=== PATIENT | female | born 1980 | race African-American/Black ===

== ENCOUNTER 2019-11-16 14:25 | Emergency (ER) | payer OTHER, SELFPAY ==
[2019-11-16 14:37] VITALS: BP 150/96; PULSE 97; RESP 20; TEMP 37; O2SAT 98
--- NOTE | 2019-11-16 14:42 | ED.GENADULT ---
HPI - General Adult General Chief complaint: Skin/Abscess/Foreign Body Stated complaint: spider bite Time Seen by Provider: 11/16/19 14:42 Source: patient and RN notes reviewed Mode of arrival: ambulatory Limitations: no limitations History of Present Illness HPI narrative: 39-year-old -[place] female presents with complaints of spider bite with redness, warmth, tenderness, and swelling to RT upper back for 1 day. One day ago with nodule and then redness and warmth continues to increase throughout the past 12-16 hours with tenderness after her picked at area. Cleaned area and applied Vaseline without relief. Denies radiation of tenderness. Increase redness and swelling. Exacerbating factor consist of picking at area. Denies shoulder or neck pain. 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 Denies fever or chills. Denies nausea, vomiting, and abdominal pain. LMP, 10/20/19. The patient reports she have not been diagnosed with COVID-19. The patient reports she is not waiting for the results of a COVID-19 lab test. The patient reports she do not have fever, chills, weakness, fatigue, or myalgia. The patient reports she do not have a new or worsening cough or shortness of breath. Denies chest pain. The patient reports she do not have any rhinorrhea, congestion, sore throat, and diarrhea. Tolerating po intake well. Denies recent traveling. Denies concerns for COVID-19 or exposures been home with limited outdoor exposure except for essential household needs, work, and return home. At this time, patient is not suspected of having COVID-19. Some parts of this dictation were generated by voice recognition software and may contain typographical and/or grammatical inaccuracies. Related Data Home Medications Medication Instructions Recorded Confirmed alprazolam 11/16/19 Allergies Allergy/AdvReac Type Severity Reaction Status Date / Time No Known Allergies Allergy Verified 10/17/16 15:01 Review of Systems Review of Systems: Narrative: CONSTITUTIONAL: Denies fever, chills, sweats. EYES: Denies visual changes, redness, discharge. ENT: Denies rhinorrhea, congestion, sore throat, otalgia. CARDIOVASCULAR: Denies chest pain, palpitations, edema. RESPIRATORY: Denies dyspnea, wheezing, cough. GASTROINTESTINAL: Denies abdominal pain, nausea, vomiting, diarrhea. GENITOURINARY: Denies dysuria, hematuria, abnormal discharge. SKIN: Complains of drainage,redness, swelling, warmth, and tenderness to RT upper back. MUSCULOSKELETAL: Denies acute back pain, joint pain, or myalgia. NEUROLOGIC: Denies numbness or focal weakness. PSYCHIATRIC: Denies anxiety or depression. All systems reviewed & are unremarkable except as noted in HPI and below. [facility] Past Medical History Medical History (Updated 11/17/19 @ 00:00 by Madeline Dadick) No significant past medical history Surgical History Surgical History (Updated 11/16/19 @ 15:04 by FRANK Ventura) Hx of appendectomy Family History Family History (Updated 09/28/17 @ 10:49 by DOCTOR UNKNOWN) Other Diabetes mellitus Family history of arthritis Social History Social History (Updated 11/16/19 @ 15:03 by FRANK Ventura) Smoking status: Never smoker Tobacco type: cigarettes Second hand tobacco smoke exposure: No Alcohol intake: current Substance use: current Substance use type: marijuana Gender identity (if verbalized by the patient): Female Comments At time of signature, agree with nurse past medical, surgical, social, and family history. There is no relevant family history pertinent to the presenting complaint. Exam Narrative: Exam Narrative: GENERAL: This is a well-nourished, well-developed patient, in no apparent distress. HEAD: normocephalic, atraumatic. EYES: PERRL. Sclera clear/white. Vision is grossly intact. CARDIOVASCULAR: Regular rate and rhythm without murmurs, gallops, or rubs. RESPIRATORY: Clear
== END 2019-11-16 15:00 | disposition home or self-care (01) ==
PROVIDERS: Emergency Provider Nurse Practitioner Family; PCP Family Medicine
DX: L03.312 Cellulitis of back [any part except buttock and flank] (principal)
CPT/HCPCS: 99213; G0463

== ENCOUNTER 2019-11-20 13:14 | Outpatient (CLI) | payer OTHER, SELFPAY ==
--- NOTE | ~2019-11-20 | MM_ITS ---
EXAMINATION: MM screening michaela BI w rosemary HISTORY: Screening TECHNIQUE: Craniocaudal and mediolateral oblique 3-D tomosynthesis images were obtained and synthetic 2-D images were generated. CAD analysis was submitted and interpreted. COMPARISON: Comparison to multiple prior studies sequentially, with oldest reviewed study dated 07/09. BREAST PARENCHYMAL COMPOSITION: The breasts are heterogeneously dense, which may obscure small masses . FINDINGS: There is no evidence of suspicious mass, calcification, or architectural distortion to sugg est malignancy in either breast. There has been no suspicious interval change. IMPRESSION: 1. No mammographic evidence of malignancy. 2. Recommend routine screening mammography in one year. BI-RADS Category 1: Negative Reviewed, dictated and finalized at location D.
== END 2019-11-20 13:15 | disposition home or self-care (01) ==
LOC: ANHIMG 13:16
PROVIDERS: PCP Family Medicine; Visit Provider Family Medicine
DX: Z12.31 Encounter for screening mammogram for malignant neoplasm of breast (principal)
CPT/HCPCS: 77063; 77067

== ENCOUNTER 2020-05-13 13:04 | Emergency (ER) | payer OTHER, SELFPAY ==
[2020-05-13 13:13] VITALS: BP 143/100; PULSE 118; RESP 18; TEMP 36.2; O2SAT 96
--- NOTE | 2020-05-13 13:25 | ED.PSYCH ---
HPI - Psych General Chief Complaint: Psychiatric Symptoms <Ashok Osborn MD - Last Filed: 05/15/20 10:59> Stated Complaint: ETOH detox <Ashok Osborn MD - Last Filed: 05/15/20 10:59> Time Seen by Provider: 05/13/20 13:25 <Ashok Osborn MD - Last Filed: 05/15/20 10:59> History of Present Illness HPI Narrative: 40 yo female w/ h/o alcohol abuse presents to the ED for suicidal ideations. She reports that she has been a daily drinker for years she has about 6-8 drinks daily. She has had mild withdrawal symptoms in the past. She reports that she frequently has violent behavior while intoxicated. She is now trying to stop drinking and does not believe that she is safe to be alone. She is afraid that she will either harm herself or drink again. She has considered overdosing on medications. <Ashok Osborn MD - Last Filed: 05/15/20 10:59> Related Data Home Medications: Home Medications Medication Instructions Recorded Confirmed alprazolam 11/16/19 <Ashok Osborn MD - Last Filed: 05/15/20 10:59> Allergies/Adverse Reactions: Allergies Allergy/AdvReac Type Severity Reaction Status Date / Time No Known Allergies Allergy Verified 05/13/20 13:19 <Ashok Osborn MD - Last Filed: 05/15/20 10:59> Review of Systems Review of Systems: All systems reviewed & are unremarkable except as noted in HPI and below <Ashok Osborn MD - Last Filed: 05/15/20 10:59> Constitutional: Constitutional: Denies chills and Denies fever(s) <Ashok Osborn MD - Last Filed: 05/15/20 10:59> ENT: Reports system reviewed and no additional complaints, except as documented <Ashok Osborn MD - Last Filed: 05/15/20 10:59> Cardiovascular: Cardiovascular: Denies chest pain <Ashok Osborn MD - Last Filed: 05/15/20 10:59> Respiratory: Respiratory: Denies dyspnea <Ashok Osborn MD - Last Filed: 05/15/20 10:59> Gastrointestinal: Gastrointestinal: Denies abdominal pain and Denies nausea <Ashok Osborn MD - Last Filed: 05/15/20 10:59> Genitourinary: Genitourinary: Reports no additional female genitourinary complaints <Ashok Osborn MD - Last Filed: 05/15/20 10:59> Musculoskeletal: Musculoskeletal: Denies back pain <Ashok Osborn MD - Last Filed: 05/15/20 10:59> Neurologic: Denies dizziness and Denies weakness <Ashok Osborn MD - Last Filed: 05/15/20 10:59> PMF Past Medical History Medical History: Medical History (Updated 05/14/20 @ 00:00 by Madeline Hernandez) Alcoholism No significant past medical history <Ashok Osborn MD - Last Filed: 05/15/20 10:59> Surgical History Surgical History: Surgical History (Updated 11/16/19 @ 15:04 by FRANK Ventura) Hx of appendectomy <Ashok Osborn MD - Last Filed: 05/15/20 10:59> Family History Family History: Family History (Updated 09/28/17 @ 10:49 by DOCTOR UNKNOWN) Other Diabetes mellitus Family history of arthritis <Ashok Osborn MD - Last Filed: 05/15/20 10:59> Social History Social History: Social History (Updated 11/16/19 @ 15:03 by FRANK Ventura) Smoking status: Never smoker Tobacco type: cigarettes Second hand tobacco smoke exposure: No Alcohol intake: current Substance use: current Substance use type: marijuana Gender identity (if verbalized by the patient): Female <Ashok Osborn MD - Last Filed: 05/15/20 10:59> Exam Const: General: healthy appearing, no acute distress and alert <Ashok Osborn MD - Last Filed: 05/15/20 10:59> Orientation/consciousness: patient oriented x3 <Ashok Osborn MD - Last Filed: 05/15/20 10:59> HENMT: Head: normal to inspection <Ashok Osborn MD - Last Filed: 05/15/20 10:59> Neck: Neck: normal visual inspection and no lymphadenopathy <Ashok Osborn MD - Last Filed: 05/15/20 10:59> Chest: Chest palpation & i
[2020-05-13 13:49] LABS: Basophils Percent Auto 0.6 % (0.2-1.2); Eosinophils Percent Auto 0.6 % (0-4.4); Hematocrit 43.6 % (37.0-47.0); Hemoglobin 14.7 g/dL (12.0-15.0); Immature Granulocyte Absolute 0.01 K/mm3 (0.00-0.031); Immature Granulocyte Percent A 0.2 % (0-0.5); Lymphocytes Percent Auto 35.8 % (18.3-44.2); Mean Corpuscular HGB Conc 33.7 g/dl (32-36); Mean Corpuscular Hemoglobin 31.3 pg (26-34); Mean Corpuscular Volume 92.8 fl (80-100); Mean Platelet Volume 10.1 fl (7.4-10.4); Monocytes Absolute Auto 0.4 K/mm3 (0.1-0.6); Monocytes Percent Auto 7.9 % (2.6-8.5); Neutrophils Absolute Auto 2.9 K/mm3 (1.3-6.7); Neutrophils Percent Auto 54.9 % (45.5-73.1); Platelet Count Result 239 k/mm3 (150-375); Red Cell Distribution Width 13.7 % (11.5-14.5); White Blood Count 5.3 K/mm3 (4.5-10.0)
[2020-05-13 13:58] LABS: Add Urine Microscopic? YES; Appearance Urine Clear (Clear); Bacteria Urine Trace /hpf; Bilirubin Urine Negative (Negative); Blood Urine Negative (Negative); Color Urine Yellow (Yellow); Glucose Urine UA Negative (Negative); Ketones Urine Negative (Negative); Leukocyte Esterase Ur Negative LEU/UL (Negative); Mucus Urine Rare /lpf; Nitrate Urine Negative (Negative); Protein Urine 2+ mg/dL (Negative); Specific Grav Ur 1.021 (1.001-1.035); Squamous Epithelial Cell Urine Many /hpf (Few); Transitional Epi Cells Urine Rare /hpf (None Seen); Urobilinogen Urine Negative mg/dL (<2.0)
[2020-05-13 14:04] LABS: Alanine Aminotransferase 21 U/L (4-35); Albumin Level 5.1 g/dL (3.5-5.1); Alkaline Phosphatase 90 U/L (38-126); Anion Gap 8 mmol/L (8-16); Aspartate Amino Transferase 40 U/L (14-36); Bilirubin,Total 0.3 mg/dL (0.2-1.3); Blood Urea Nitrogen 12 mg/dL (7-17); Calcium 9.5 mg/dL (8.4-10.2); Carbon Dioxide 29 mmol/L (22-30); Chloride 100 mmol/L (98-107); Estimated CRCL calculation 54 ml/min; Estimated Glomerular Filt Rate > 60; Glucose 94 mg/dL (65-105); Potassium 4.6 mmol/L (3.4-5.0); Sodium 137 mmol/L (137-145)
[2020-05-13 14:06] LABS: Amphetamine Screen Urine Negative (Negative); Barbiturate Screen Urine Negative (Negative); Benzodiazepines Screen Urine Negative (Negative); Cannabinoid Screen Urine Positive (Negative); Cocaine Screen Urine Negative (Negative); Methadone Screen Urine Negative (Negative); Opiate Screen Urine Negative (Negative); Phencyclidine Screen Urine Negative (Negative)
[2020-05-13 14:32] LABS: Ethanol 33 mg/dL (<10)
--- NOTE | 2020-05-13 15:07 | PC.NURSE ---
received report from Koby MARTINEZ. patient here with suicidal ideations. patient is known alcoholic who quit drinking yesterday. states she had thoughts about taking all of her xanax due to depression. came to ED for treatment. medically cleared now. waiting for crisis to arrive. call has been placed.
--- NOTE | 2020-05-13 15:15 | PC.NURSE ---
sitter at bedside for 1:1 monitoring. food tray delievered. patient appears comfortable. appears to be sleeping. will continue to monitor. continue SI precautions per policy and safety. waiting for crisis to see. no indications of alcohol withdrawl at this time.
--- NOTE | 2020-05-13 16:15 | PC.NURSE ---
resting on stretcher. sitter continues to monitor patient 1:1 per policy. resting comfortably. appears to be sleeping at times.
--- NOTE | 2020-05-13 16:50 | PC.NURSE ---
crisis done has met with patient. patient continues to state that if she is released from the ED she will start drinking again at home and does have access to medications. states she would be at risk to take medications and drink. see notes from crisis on chart. patient's information faxed to [facility] and [facility]. waiting for reply. resting on stretcher. dinner tray ordered.
--- NOTE | 2020-05-13 17:15 | PC.NURSE ---
resting on stretcher. sitter continues to monitor patient 1:1 per policy. resting comfortably. appears to be sleeping at times.
--- NOTE | 2020-05-13 17:29 | PC.NURSE ---
spoke with Loulou from [facility]. she has discussed patient's case with other staff there. they do have inpatient detox programs there but due to patient's suicidal statements she needs to be admitted to inpatient psych for treatment and SI statements prior to entering a detox program. phone call transferred to [facility] so patient can take to their staff.
--- NOTE | 2020-05-13 18:05 | PC.NURSE ---
patient's updated vitals faxed to Loulou at [facility]. patient updated and all questions answered regarding plan for treatment and transfer.
[2020-05-13 18:11] VITALS: BP 123/70; PULSE 110; RESP 16; O2SAT 100
--- NOTE | 2020-05-13 18:15 | PC.NURSE ---
resting on stretcher. sitter continues to monitor patient 1:1 per policy. resting comfortably. appears to be sleeping at times.
--- NOTE | 2020-05-13 18:59 | PC.NURSE ---
dinner tray given. patient now states that she is not suicidal. that she would never harm herself. states that her son is coming over tonight. states that she has her son every monday night. charge nurse aware. will update provider. explained to patient several times that she has made statements that she will go home and continue to drink and she has thought about taking several pills if xanax. patient states she only made these statements in order to help speed up my transfer to detox. patient aware that only a provider can change her disposition at this time. that the ED provider would have to be willing to accept the liability and risk that she will go home and harm herself as she has stated.
[2020-05-13 19:47] LABS: Acetaminophen < 10 ug/mL (10-30); Salicylate < 1.0 mg/dL (2-20)
--- NOTE | 2020-05-13 19:54 | PC.NURSE ---
Loulou from [facility] called. Patient has been accepted. Provided number to call report ([phone]). Will receive accepting doctor's name and bed number when report is called. Notified nurse.
--- NOTE | 2020-05-13 20:10 | PC.NURSE ---
patient accepted to [facility]. EMS transport being arranged by [employer]. chart printed for current information. patient updated. patient now in only her bra and underwear. refuses to wear the paper scrubs. states they make her itch. patient has also stated a few times to sitter I am not going to be transferred . patient has been updated and advised several times on policy and procedure regarding her suicidal statements. alert. oriented. no change in overall condition.
--- NOTE | 2020-05-13 20:11 | PC.NURSE ---
patient has been accepted at [facility].
[2020-05-13 20:13] VITALS: BP 132/88; PULSE 98; RESP 17; TEMP 36.2; O2SAT 100
--- NOTE | 2020-05-13 21:06 | PC.NURSE ---
EMS here for transport to [facility]. chart given to EMS. patient to be transferred to [facility] #[phone] Lopez as accepting physician. report already called by Ananth MARTINEZ. patient now has paper scrubs on and is on stretcher. being assisted by hemodialysis charge nurse. no change in overall condition. patient released to EMS care for transport.
--- NOTE | 2020-05-13 21:23 | PC.NURSE ---
patient had to be restrained. patient was requesting to look in her belongings bag for her phone and attempt to contact her family prior to transport. patient then seen to have several pills in her mouth out of her own purse. security present. EMS present. provider aware. patient combative requiring physical restraint. striking and spitting at staff. patient's pockets on paper scrubs also had tablets in her pockets. patient's pockets cleared and her mouth checked. patient spitting pills at staff and belegerient. all personal belongings removed from patient and given to EMS. pills counted and inventoried by EMS. patient strapped onto stretcher with usual safety belts, warm blanket given and patient transferred out of this ED.
--- NOTE | 2020-05-13 21:40 | PC.NURSE ---
spoke with Hemalatha MARTINEZ at [facility]. updated on incident with patient.
--- NOTE | 2020-05-13 21:50 | PC.NURSE ---
spoke to Ildefonso at poison control. unable to account for 3 of the patient diclofenac. this is not a toxic dose. pt should not experience any sx. only possible sx is upset stomach. pt denied swallowing any of the pills. pt did spit the pills out of her mouth.
[2020-05-13 22:27] LABS: SARS-CoV-2 RNA PCR Negative
== END 2020-05-13 21:09 ==
PROVIDERS: Emergency Medicine; Emergency Provider Emergency Medicine; PCP Family Medicine
DX: R45.851 Suicidal ideations (principal)
CPT/HCPCS: 36415; 80053; 80307; 81001; 81025; 84443; 85025; 99285; C9803; U0003; U0005

== ENCOUNTER 2020-07-29 09:51 | Emergency (ER) | payer OTHER, SELFPAY ==
[2020-07-29 10:16] VITALS: BP 139/85; PULSE 102; RESP 16; TEMP 36.3; O2SAT 100
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
== END 2020-07-29 11:10 | disposition home or self-care (01) ==
PROVIDERS: Emergency Provider Nurse Practitioner
DX: L03.115 Cellulitis of right lower limb (principal); S81.011A Laceration without foreign body, right knee, initial encounter; S61.411A Laceration without foreign body of right hand, initial encounter; S00.83XA Contusion of other part of head, initial encounter; V58.6XXA Passenger in pick-up truck or van injured in noncollision transport accident in traffic accident, initial encounter
CPT/HCPCS: 99213; G0463

== ENCOUNTER 2020-08-24 07:08 | Outpatient (CLI) | payer OTHER, SELFPAY ==
--- NOTE | ~2020-08-24 | MR_ITS ---
EXAMINATION: MR brain/brain stem wo con DATE: 08/24/2020 07:58 INDICATION: Posttraumatic headache. TECHNIQUE: Magnetic resonance imaging (MRI) of the brain and brainstem was performed without intraven ous contrast. Sequences included sagittal and axial T1-weighted FSE, axial diffusion-weighted FS EPI, axial T2*-weighted GRE, axial T2-weighted FLAIR Propeller, and axial T2-weighted Propeller. Apparent diffusion coefficient (ADC) maps were created. COMPARISON: Head CT 02/17/2013 FINDINGS: There is no intracranial hemorrhage, acute infarction, or abnormal intracranial mass lesion . The ventricles are normal in size. The mastoid air cells are normal. The orbits are normal. The par anasal sinuses are clear. IMPRESSION: 1. Normal brain. Reviewed, dictated and finalized at location B. IMPRESSION: 1. Normal brain.
== END 2020-08-24 07:09 | disposition home or self-care (01) ==
PROVIDERS: PCP Nurse Practitioner Family; Visit Provider Nurse Practitioner Family
DX: G44.309 Post-traumatic headache, unspecified, not intractable (principal)
CPT/HCPCS: 70551

== ENCOUNTER 2020-09-15 13:51 | Emergency (ER) | payer OTHER, SELFPAY ==
[2020-09-15 14:03] VITALS: BP 123/84; PULSE 108; RESP 16; TEMP 37; O2SAT 99
--- NOTE | 2020-09-15 14:05 | PC.NURSE ---
pt yelling at [employer]. telling him to get out of her fucking face . when this rn went to speak with pt, pt again verbally agressive. yelling. continues to refuse blood draw. now denying self harm today. states was using her shirt at the residential to cough into. pt at doorway in staffs faces. jim pd contacted.
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
[2020-09-15] MEDS: diphenhydrAMINE HCl INJ 50 MG/ML VIAL IM (15:15)
[2020-09-15] MEDS: LORazepam INJ (*CRX) 2 MG/ML VIAL IM (15:15)
[2020-09-15 16:31] LABS: Basophils Percent Auto 0.6 % (0.2-1.2); Eosinophils Percent Auto 0.3 % (0-4.4); Hematocrit 41.7 % (37.0-47.0); Hemoglobin 13.9 g/dL (12.0-15.0); Immature Granulocyte Absolute 0.02 K/mm3 (0.00-0.031); Immature Granulocyte Percent A 0.3 % (0-0.5); Immature Platelet Fraction Pct 5.3 % (0.9-11.2); Lymphocytes Absolute Auto 1.92 K/mm3 (0.9-3.2); Lymphocytes Percent Auto 30.5 % (18.3-44.2); Mean Corpuscular HGB Conc 33.3 g/dl (32-36); Mean Corpuscular Hemoglobin 30.5 pg (26-34); Mean Corpuscular Volume 91.6 fl (80-100); Mean Platelet Volume 10.1 fl (7.4-10.4); Monocytes Absolute Auto 0.5 K/mm3 (0.1-0.6); Monocytes Percent Auto 7.1 % (2.6-8.5); Neutrophils Absolute Auto 3.9 K/mm3 (1.3-6.7); Neutrophils Percent Auto 61.2 % (45.5-73.1); Platelet Count Result 319 k/mm3 (150-375); Red Blood Count 4.55 M/mm3 (4.2-5.4); Red Cell Distribution Width 13.4 % (11.5-14.5); White Blood Count 6.3 K/mm3 (4.5-10.0)
[2020-09-15 16:36] LABS: Acetaminophen < 10 ug/mL (10-30); Anion Gap 16 mmol/L (8-16); Blood Urea Nitrogen 8 mg/dL (7-17); Calcium 9.9 mg/dL (8.4-10.2); Carbon Dioxide 17 mmol/L (22-30); Chloride 111 mmol/L (98-107); Estimated CRCL calculation 75 ml/min; Estimated Glomerular Filt Rate > 60; Ethanol 149 mg/dL (<10); Glucose 126 mg/dL (65-105); Potassium 4.9 mmol/L (3.4-5.0); Salicylate < 1.0 mg/dL (2-20); Sodium 144 mmol/L (137-145)
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
--- NOTE | 2020-09-15 20:31 | PC.NURSE ---
Pt calm and cooperative for repeat ethyl alcohol lab draw. Pt apologized to RN for prior behavior. Pt asked if she could make a phone call and is currently using [facility].
[2020-09-15 20:37] LABS: Add Urine Microscopic? YES; Appearance Urine Cloudy (Clear); Bacteria Urine Trace /hpf; Bilirubin Urine Negative (Negative); Blood Urine 1+ (Negative); Color Urine Yellow (Yellow); Glucose Urine UA 1+ mg/dL (Negative); Ketones Urine Negative (Negative); Leukocyte Esterase Ur Negative LEU/UL (Negative); Mucus Urine Rare /lpf; Nitrate Urine Negative (Negative); Protein Urine 2+ mg/dL (Negative); RBC Urine 0-2 /hpf (0-2); Specific Grav Ur 1.021 (1.001-1.035); Squamous Epithelial Cell Urine Many /hpf (Few); Urobilinogen Urine Negative mg/dL (<2.0); WBC Urine 0-3 /hpf
[2020-09-15 20:47] LABS: Ethanol 25 mg/dL (<10)
[2020-09-15 20:51] LABS: Amphetamine Screen Urine Negative (Negative); Barbiturate Screen Urine Negative (Negative); Benzodiazepines Screen Urine Negative (Negative); Cannabinoid Screen Urine Positive (Negative); Cocaine Screen Urine Negative (Negative); Methadone Screen Urine Negative (Negative); Opiate Screen Urine Negative (Negative); Phencyclidine Screen Urine Negative (Negative)
[2020-09-15 22:50] VITALS: BP 141/96; PULSE 90; RESP 18; TEMP 36.3; O2SAT 100
== END 2020-09-15 23:05 | disposition home or self-care (01) ==
PROVIDERS: Emergency Provider Emergency Medicine; PCP Nurse Practitioner Family
DX: F10.929 Alcohol use, unspecified with intoxication, unspecified (principal); R45.4 Irritability and anger; Y90.6 Blood alcohol level of 120-199 mg/100 ml
CPT/HCPCS: 36415; 80048; 80307; 81001; 81025; 84443; 85025; 85055; 96372; 99284; J1200; J2060

== ENCOUNTER 2020-12-04 10:22 | Observation (INO) | payer OTHER, SELFPAY ==
[2020-12-04] VITALS (60 sets, daily range): BP systolic 111–135; BP diastolic 86–113; PULSE 96–123; RESP 10–22; TEMP 36.2–36.7; O2SAT 97–100
--- NOTE | ~2020-12-04 | CT_ITS ---
EXAMINATION: CT brain wo con DATE: 12/04/2020 11:53 INDICATION: Unresponsive. TECHNIQUE: Computed tomography (CT) of the head was performed without intravenous contrast. The mA wa s adjusted according to patient size. Iterative reconstruction technique was employed. The dose-lengt h product was 605.33 mGy-cm. COMPARISON: Head CT 02/17/2013 FINDINGS: There is no intracranial hemorrhage, acute infarction, or abnormal intracranial mass lesion . The ventricles are normal in size. The orbits are normal. The paranasal sinuses are clear. The mast oid air cells are normal. IMPRESSION: 1. Normal brain. Reviewed, dictated and finalized at location B. IMPRESSION: 1. Normal brain.
[2020-12-04] MEDS: NALOXONE HCL INJ 2 MG/2 ML AMP IV PUSH (10:30)
--- NOTE | 2020-12-04 10:32 | ECG_ITS ---
Measurements Intervals [place] Rate: 113 P: 46 MT: 137 QRS: 43 QRSD: 83 T: 36 QT: 345 QTc: 474 Interpretive Statements SINUS TACHYCARDIA INCOMPLETE RIGHT BUNDLE BRANCH BLOCK BASELINE ARTIFACT- II, III, AVF, V1, V3-V6 ABNORMAL ECG Electronically Signed On 12-04-2020 11:13:44 CDT by Oneil Titus D.O.
--- NOTE | 2020-12-04 10:45 | ED.OVERDOSE ---
HPI - Overdose General Chief Complaint: Altered Mental Status Stated Complaint: OD Time Seen by Provider: 12/04/20 10:28 History of Present Illness HPI Narrative: 40 yo female presents to the ED for an overdose. She reportedly texted her friend saying that she was going to kill herself. She was later found unresponsive. When EMS arrived she was minimally arousable to painful stimuli. Pupils were pinpoint. No response to narcan. Found next to empty bottles of diclofenac and cyclobenzaprine. Related Data Home Medications Medication Instructions Recorded Confirmed alprazolam 2 mg PO TID PRN 11/16/19 07/29/20 cyclobenzaprine 5 mg PO DAILY 07/29/20 07/29/20 diclofenac sodium 50 mg PO BID 07/29/20 07/29/20 Allergies Allergy/AdvReac Type Severity Reaction Status Date / Time No Known Allergies Allergy Verified 05/13/20 13:19 Review of Systems Review of Systems: ROS unobtainable: Yes unobtainable due to mental status PMFSH Past Medical History Medical History Alcoholism History of suicide attempt Surgical History Surgical History History of appendectomy Family History Family History Other Diabetes mellitus Family history of arthritis Social History Social History Social History: Surrogate decision maker: Code status: Full code. Smoking status: Never smoker Tobacco type: cigarettes Second hand tobacco smoke exposure: No Alcohol intake: current Substance use: current Substance use type: former substance user Exam Const: General: healthy appearing and no acute distress Nutritional Appearance: well nourished HENMT: Head: normal to inspection Eyes: Other: pupils 2mm and reactive Neck: Neck: normal visual inspection Resp: Effort & Inspection: normal respiratory effort Auscultation: clear to auscultation bilaterally Cardio: Rate: tachycardic Rhythm: regular rhythm GI: Inspection: non-distended GI Palp: Yes Soft to palpation Skin: General skin exam: normal color Neuro: General: moves all extremities Other: arousable to pain. Extrem: General: normal to inspection and no edema Course Vital Signs Vital signs: Vital Signs Pulse Rate 120 H 12/04/20 10:25 Respiratory Rate 19 12/04/20 10:25 Pulse Oximetry 100 12/04/20 10:25 Temperature 36.2 C L 12/04/20 10:29 Pulse Rate 104 H 12/04/20 17:15 Respiratory Rate 13 12/04/20 17:15 Blood Pressure 121/90 12/04/20 17:01 Pulse Oximetry 100 12/04/20 17:15 MDM - Overdose MDM Narrative Medical decision making narrative: She took unknown amounts of at least 2 drugs and possibly others as well. I will admit her to the ICU for observation and medical clearance. Medical Records Attestation: I reviewed the patient's medical records. Lab Data Attestation: I reviewed the patient's lab results. Result diagrams: 12/04/20 10:59 12/04/20 11:00 Labs: Lab Results 12/04/20 12/04/20 12/04/20 Range/Units 10:59 11:00 11:00 WBC 3.8 L (4.5-10.0) K/mm3 RBC 4.56 (4.2-5.4) M/mm3 Hgb 14.1 (12.0-15.0) g/dL Hct 42.8 (37.0-47.0) % MCV 93.9 (80-100) fl MCH 30.9 (26-34) pg MCHC 32.9 (32-36) g/dl RDW 13.7 (11.5-14.5) % Plt Count 234 (150-375) k/mm3 MPV 10.0 (7.4-10.4) fl Immature Gran % (Auto) 0.0 (0-0.5) % Neut % (Auto) 49.1 (45.5-73.1) % Lymph % (Auto) 42.8 (18.3-44.2) % [place] % (Auto) 7.0 (2.6-8.5) % Eos % (Auto) 0.3 (0-4.4) % Baso % (Auto) 0.8 (0.2-1.2) % Lymph # (Auto) 1.64 (0.9-3.2) K/mm3 [place] # (Auto) 0.3 (0.1-0.6) K/mm3 Eos # (Auto) 0.0 (0-0.3) K/mm3 Baso # (Auto) 0.0 (0.0-0.1) K/mm3 Abs Immat Gran (auto) 0.00 (0.00-0.031) K/mm3 Absolute Neuts (auto) 1.9
--- NOTE | 2020-12-04 11:03 | PC.NURSE ---
Sitter placed at bedside.
[2020-12-04] MEDS: SODIUM CHLORIDE 0.9% IV 1,000 ML 999 ML IV CONT ×2 (11:10→13:09)
[2020-12-04] MEDS: PANTOPRAZOLE SODIUM IV 40 MG VIAL IV PUSH (11:10)
[2020-12-04 11:14] LABS: Basophils Percent Auto 0.8 % (0.2-1.2); Eosinophils Percent Auto 0.3 % (0-4.4); Hematocrit 42.8 % (37.0-47.0); Hemoglobin 14.1 g/dL (12.0-15.0); Lymphocytes Absolute Auto 1.64 K/mm3 (0.9-3.2); Lymphocytes Percent Auto 42.8 % (18.3-44.2); Mean Corpuscular HGB Conc 32.9 g/dl (32-36); Mean Corpuscular Hemoglobin 30.9 pg (26-34); Mean Corpuscular Volume 93.9 fl (80-100); Monocytes Absolute Auto 0.3 K/mm3 (0.1-0.6); Neutrophils Absolute Auto 1.9 K/mm3 (1.3-6.7); Neutrophils Percent Auto 49.1 % (45.5-73.1); Platelet Count Result 234 k/mm3 (150-375); Red Blood Count 4.56 M/mm3 (4.2-5.4); Red Cell Distribution Width 13.7 % (11.5-14.5); White Blood Count 3.8 K/mm3 (4.5-10.0)
[2020-12-04 11:15] LABS: Prothrombin Time 12.8 Seconds (11.1-14.7)
[2020-12-04 11:16] LABS: Alanine Aminotransferase 17 U/L (4-35); Albumin Level 4.5 g/dL (3.5-5.1); Alkaline Phosphatase 90 U/L (38-126); Anion Gap 14 mmol/L (8-16); Aspartate Amino Transferase 42 U/L (14-36); Bilirubin,Total 0.7 mg/dL (0.2-1.3); Blood Urea Nitrogen 11 mg/dL (7-17); Calcium 8.9 mg/dL (8.4-10.2); Carbon Dioxide 22 mmol/L (22-30); Chloride 98 mmol/L (98-107); Estimated Glomerular Filt Rate > 60; Glucose 140 mg/dL (65-110); Magnesium 1.9 mg/dL (1.6-2.3); Partial Thromboplastin Time 22.4 SECONDS (22.3-36.8); Potassium 3.8 mmol/L (3.4-5.0); Sodium 134 mmol/L (137-145)
[2020-12-04 11:17] LABS: Acetaminophen < 10 ug/mL (10-30); Ethanol 11 mg/dL (<10); Salicylate < 1.0 mg/dL (2-20)
[2020-12-04 11:25] LABS: Add Urine Microscopic? YES; Appearance Urine Cloudy (Clear); Bilirubin Urine Negative (Negative); Blood Urine Negative (Negative); Color Urine Yellow (Yellow); Glucose Urine UA Negative (Negative); Ketones Urine Negative (Negative); Leukocyte Esterase Ur Negative LEU/UL (Negative); Mucus Urine Rare /lpf; Nitrate Urine Negative (Negative); Protein Urine 2+ mg/dL (Negative); Specific Grav Ur 1.024 (1.001-1.035); Squamous Epithelial Cell Urine Rare /hpf (Few); Urobilinogen Urine Negative mg/dL (<2.0)
--- NOTE | 2020-12-04 11:28 | PC.NURSE ---
Spoke to Izzy from poison control. Flexeril - Max dose is 350mg, peak is 4-6 hours on medication, and half life is about 32 hours. Watch for s/s such as lethargy, N/V, confusion, delirium, QRS widening, tachycardia, hyper and hypotension, and serotonin toxicity. Izzy also states to watch for possible respiratory depression. Per Izzy, treat symptoms. Diclofenac - Peak is 0.5-5 hours. Watch for s/s such as N/V/D, IRRIGATION DISTRICT MANAGER depression, metabolic acidosis, and temporary elevation in BUN and Cr. Treat symptoms.
[2020-12-04 11:32] LABS: Amphetamine Screen Urine Negative (Negative); Barbiturate Screen Urine Negative (Negative); Benzodiazepines Screen Urine Positive (Negative); Cannabinoid Screen Urine Positive (Negative); Cocaine Screen Urine Negative (Negative); Methadone Screen Urine Negative (Negative); Opiate Screen Urine Negative (Negative); Phencyclidine Screen Urine Negative (Negative)
--- NOTE | 2020-12-04 14:00 | PM.IMHP ---
H&P: HPI History of Present Illness Date/Time: 12/04/20 14:00 Chief Complaint: Unresponsive, suspected overdose. Narrative: This is a 40-year-old female with history of suicide attempt who presented to the emergency department earlier today via EMS from home for evaluation after she was found unresponsive with suspected overdose. She is not able to provide much in the way of history at this time due to somnolence and as such a majority of the following is obtained via a review of her electronic medical records. According to the triage note the patient was found unresponsive at home by her mother after she was alerted to the fact that the patient had sent a text message to a friend that she was trying to end her life. It is suspected that the patient took Flexeril and diclofenac as those bottles were found nearby however it is unclear how many she took if in fact she did take any pills. When I come in the room to see the patient she does not open her eyes to voice but did open them briefly with stimuli. She was able to tell me her 1st name and that she was in the hospital but could not provide any other details. She does not recall how she got to the hospital or in what contacts she was brought here. She does not recall texting anyone nor does she recall taking any medications. She is not awake enough to discuss any further. Review of Systems Review of Systems: Unable to be obtained accurately given current clinical condition as above. [facility] Past Medical History Medical History (Updated 12/04/20 @ 20:18 by Leonora Mendez PA-C) History of alcohol abuse History of suicide attempt Surgical History Surgical History History of appendectomy Family History Family History Other Diabetes mellitus Family history of arthritis Social History Social History (Updated 12/04/20 @ 20:19 by Leonora Mendez PA-C) Social History: Emergency contact: Jose Walls, mother. Code status: Full code. Smoking status: Former smoker Tobacco type: cigarettes Second hand tobacco smoke exposure: No Alcohol intake: current Alcohol use details: Previously documented as having a history of alcohol abuse in her chart. Substance use: former Substance use type: former substance user Additional living arrangements comments: Patient's address is in [place]. Additional occupation/education comments: Unemployed. Meds Home Medications and Allergies Home Medications Medication Instructions Recorded Confirmed Type alprazolam 2 mg PO TID PRN 11/16/19 07/29/20 History cyclobenzaprine 5 mg PO DAILY 07/29/20 07/29/20 History diclofenac sodium 50 mg PO BID 07/29/20 07/29/20 History hydrocodone-acetaminophen 1 tablet PO Q4-6H #15 tablet 07/29/20 Rx sulfamethoxazole-trimethoprim 1 tablet PO Q12H 10 Days #20 tablet 07/29/20 Rx [Bactrim DS] Allergies Allergy/AdvReac Type Severity Reaction Status Date / Time No Known Allergies Allergy Verified 05/13/20 13:19 Vital Signs Vital Signs - 24 hr 12/04/20 10:25 12/04/20 10:26 12/04/20 10:29 Temperature 97.1 F L Pulse Rate 120 H 119 H 115 H Respiratory Rate 19 18 18 Blood Pressure 113/90 118/98 H Pulse Oximetry 100 100 97 12/04/20 10:30 12/04/20 10:31 12/04/20 10:48 Temperature Pulse Rate 118 H 118 H 115 H Respiratory Rate 17 18 21 H Blood Pressure 118/98 H Pulse Oximetry 100 100 12/04/20 11:02 12/04/20 11:15 12/04/20 11:16 Temperature Pulse Rate 114 H 116 H Respiratory Rate 15 13 15 Blood Pressure 127/92 H Pulse Oximetry 100 100 12/04/20 11:42 12/04/20 12:03 12/04/20 12:15 Temperature Pulse Rate 116 H 115 H 118 H Respiratory Rate 15 15 19 Blood Pressure Pulse Oximetry 100 100 12/04/20 12:16 12/04/20 12:37 12/04/20 12:40 Temperature Pulse Rate 113 H 123 H 111 H Respiratory Rate 14 17 14
[2020-12-04] MEDS: SODIUM CHLORIDE 0.9% IV 1,000 ML 100 ML IV CONT (17:08)
--- NOTE | 2020-12-04 17:39 | PC.NURSE ---
Spoke to Liz from poison control to give update on patient's condition. Patient now awaking more often and having nonsensical speech. Patient still unable to stay awake for extended period of time.
--- NOTE | 2020-12-04 18:43 | PC.NURSE ---
Patient alert to name at this time. O2 decreased to 2L via nasal cannula.
--- NOTE | 2020-12-04 19:25 | PC.NURSE ---
Patient waking stating she wants to leave, stating she is anxious. Patient slurring words and stated she wants her IV's out. Patient informed she cannot leave due to her condition. ERP notified, orders received.
[2020-12-04] MEDS: LORazepam INJ (*CRX) 2 MG/ML VIAL 1 MG IV PUSH (20:16)
--- NOTE | 2020-12-04 21:00 | PC.NURSE ---
Patient's mother calls to get update on patient.
--- NOTE | 2020-12-04 21:39 | PC.NURSE ---
Patient becoming agitated, and stating she wants to walk around and use the phone. Patient stating she is becoming more agitated. Informed to contact hospitalist.
--- NOTE | 2020-12-04 21:41 | PC.NURSE ---
Liz from poison control to get update on patient. She states she will call back in the morning.
--- NOTE | 2020-12-04 21:44 | PC.NURSE ---
Spoke with Patsy,hospitalist calls to get info on patient. This nurse informs her that the patient is starting to become agitated. She states she will come to see patient.
--- NOTE | 2020-12-04 22:18 | PC.NURSE ---
Patient attempting to get out of the bed, yelling, im getting out of here, I need to leave. I want this out of my arm!!! Patient pulled out both of her IVs, states she wants to go home. Patient informed she cannot leave, that she came in unresponsive, and that she is being treated. Patient no longer slurring her words. Patient states she has had a lot going on at home. Patient refusing to answer any questions about self harm. Hospitalist notified, orders received.
--- NOTE | 2020-12-04 23:00 | PC.NURSE ---
This nurse went in to give patient IM inj, she stated she will remain calm and cooperate. Patient states she does want to go home. This nurse informed patient again that she is unable to go home, patient states she is going home when her ride gets here. This nurse explained to patient her plan of care, she stated i trust you, I'll be ok right now, I'll cooperate.
--- NOTE | 2020-12-04 23:12 | PC.NURSE ---
Patient up and looking under the bed, states to sitter I am just looking at things. I'm not leaving, if I was leaving the room I would've just pushed you down already. Patient then got back into bed.
[2020-12-05] VITALS (28 sets, daily range): BP systolic 112–144; BP diastolic 74–102; PULSE 74–128; RESP 14–23; TEMP 36.1–36.7; O2SAT 97–100
--- NOTE | 2020-12-05 00:41 | PC.NURSE ---
Patient becoming more agitated. Patient awake in room. Sitter at bedside. Patient hallucinating about her surroundings and frequently reminded to get back into bed. Spoke with KAMINI Wagner give 1mg ativan IM, and 5mg Haldol IM if patient becomes more aggressive.
--- NOTE | 2020-12-05 01:23 | PC.NURSE ---
Patient requesting a shower and to brush her teeth. Patient informed that all rooms are full and a shower is unavailable at this time. Patient given a toothbrush, toothpaste, and some deodorant with some wet wipes and a changes of scrubs.
--- NOTE | 2020-12-05 01:35 | PC.NURSE ---
Patient walks out of room stating she is anxious and wanting to leave. Patient stopped in hallway, informed of her plan of care and escorted back to her room by this RN and ore charger. Patient given 5mg haldol IM and 1mg ativan IM for anxiety and agitation. Patient back in room on stretcher.
[2020-12-05] MEDS: LORazepam INJ (*CRX) 2 MG/ML VIAL (01:49)
[2020-12-05] MEDS: HALOPERIDOL LACTATE 5 MG/ML VIAL (01:49)
--- NOTE | 2020-12-05 07:06 | PC.NURSE ---
Report given to MICHELLE Renee.
--- NOTE | 2020-12-05 07:18 | PC.NURSE ---
Patient denies any SI or HI at this time. States I was feeling suicidal yesterday but You all saved my life!
--- NOTE | 2020-12-05 09:15 | PC.NURSE ---
Patient refused to have morning blood drawn by safe and vault mechanic at this time. Will notify hospitalist when arrives to evaluate patient.
--- NOTE | 2020-12-05 09:18 | PC.NURSE ---
[place] poison control contacted and since its been 24 hrs, patients VS are stable and she is awake and alert they are medically clearing her and closing her case at this time.
--- NOTE | 2020-12-05 10:14 | PC.NURSE ---
Dr Walls/Hospitalist at bedside now.
--- NOTE | 2020-12-05 10:21 | PC.NURSE ---
Patient seen and medically discharged per Dr. Walls, Crisis notified at this time of psychiatric evaluation.
--- NOTE | 2020-12-05 10:21 | PC.NURSE ---
Patient did tell Dr. Walls she is willing to be voluntary for a psych admission at this time.
--- NOTE | 2020-12-05 10:31 | PM.IMPN ---
Progress Note: A&P Assessment and Plan (1) Intentional overdose of drug in tablet form: Code(s): T50.902A - Poisoning by unspecified drugs, medicaments and biological substances, intentional self-harm, initial encounter Status: Acute Assessment and Plan: Venlafaxine, possibly alprazolam DENIES CURRENT SUICIDAL IDEATION OR INTENT, THOUGH ADMITS TO INTENT LAST NIGHT MEDICALLY STABLE FOR CRISIS EVALUATION AND WILLING TO PARTICIPATE IN BRIEF INPATIENT PSYCHIATRIC STAY FOR MEDICATION ADJUSTMENT (2) Alcohol use, unspecified with unspecified alcohol-induced disorder: Code(s): F10.99 - Alcohol use, unspecified with unspecified alcohol-induced disorder Status: Acute Assessment and Plan: BAL 11 upon admission (3) Cannabis use, unspecified with unspecified cannabis-induced disorder: Code(s): F12.99 - Cannabis use, unspecified with unspecified cannabis-induced disorder Status: Acute (4) Mood disorder: Code(s): F39 - Unspecified mood [affective] disorder Status: Acute Assessment and Plan: LIKELY BIPOLAR DISORDER, CURRENTLY HYPOMANIC Subjective Date/time seen: 12/05/20 10:31 Interval history: Last night took unknown quantity of her venlafaxine. Had rx for alprazolam and was positive for that. Also had alcohol. Was distraught and wanted to . Denies desire to now, but is willing to do inpatient stay to adjust meds. Stressors with legal and custody battles and recent of aunt. Sleeps only 2 hours per night. Impulsive. High energy. Irritable. Crashes intermittently with severe depression. Fam Hx + for depression, uncertain about bipolar. Review of Systems Review of Systems: Voice is a little hoarse All systems reviewed & are unremarkable except as noted in HPI and below Exam Narrative: HEENT: PERRL, sclerae nonicteric, pharyngeal mucosa pink and intact NECK: No JVD, adenopathy, or thyromegaly CHEST: Clear to auscultation. Normal effort. HEART: NL S1/S2, regular, no murmur ABDOMEN: BS+, soft, nontender, no mass, no bruits EXTREMITIES: No cyanosis, edema, or clubbing NEUROLOGIC: CN intact and symmetric to inspection. MUSCULOSKELETAL: Tone and strength symmetric. PSYCH: Alert. Oriented to person, place, and time. Speech pressured, but coherent. Mood labile, intermittently tearful. Objective Data Vital Signs Vital Signs: Vital Signs - 24 hr 12/04/20 10:48 12/04/20 11:02 12/04/20 11:15 Temperature Pulse Rate 115 H 114 H Respiratory Rate 21 H 15 13 Blood Pressure Pulse Oximetry 100 12/04/20 11:16 12/04/20 11:42 12/04/20 12:03 Temperature Pulse Rate 116 H 116 H 115 H Respiratory Rate 15 15 15 Blood Pressure 127/92 H Pulse Oximetry 100 100 12/04/20 12:15 12/04/20 12:16 12/04/20 12:37 Temperature Pulse Rate 118 H 113 H 123 H Respiratory Rate 19 14 17 Blood Pressure 124/95 H Pulse Oximetry 100 100 12/04/20 12:40 12/04/20 12:51 12/04/20 13:17 Temperature Pulse Rate 111 H 113 H 114 H Respiratory Rate 14 13 11 L Blood Pressure 124/92 H Pulse Oximetry 100 100 12/04/20 13:36 12/04/20 13:53 12/04/20 14:07 Temperature Pulse Rate 114 H 115 H 112 H Respiratory Rate 12 12 11 L Blood Pressure Pulse Oximetry 100 100 100 12/04/20 14:16 12/04/20 14:40 12/04/20 14:45 Temperature Pulse Rate 111 H 108 H 107 H Respiratory Rate 11 L 10 L 10 L Blood Pressure 116/86 Pulse Oximetry 100 100 100 12/04/20 14:46 12/04/20 15:10 12/04/20 15:30 Temperature Pulse Rate 111 H 107 H 107 H Respiratory Rate 18 14 18 Blood Pressure 123/95 H Pulse Oximetry 100 100 12/04/20 15:31 12/04/20 15:45 12/04/20 15:46 Temperature Pulse Rate 117 H 107 H 107 H Respiratory Rate 19 14 15 Blood Pressure 116/92 H 111/90 Pulse Oximetry 100 100 12/04/20 16:00 12/04/20 16:15 12/04/20 16:16 Temperature Pulse Rate 105 H 106 H 105 H Respiratory Rate 12 11 L 12 Blood Pressure 126/95 H Pulse Oxim
--- NOTE | 2020-12-05 11:00 | PC.NURSE ---
Report given to Juvencio MARTINEZ at this time.
--- NOTE | 2020-12-05 11:30 | PC.NURSE ---
Patient's MAR indicates that there are fluids on hold for the patient at this time. There is no IV noted in place and there are no fluids noted in room. Unknown on when the fluids were discontinued and how much was received by the patient.
--- NOTE | 2020-12-05 12:30 | PC.NURSE ---
Patient is walking around room, does not sit still. She does try to exit room frequently and is stopped by the sitter. She does not actively engage me when I am speaking with her. She does talk about multiple different things and speaks so fast I have difficulty understanding her. Room safety check noted and patient was told that she is awaiting evaluation by crisis team.
--- NOTE | 2020-12-05 13:00 | PC.NURSE ---
breast worker in ED and evaluating patient.
[2020-12-05] MEDS: LORazepam INJ (*CRX) 2 MG/ML VIAL IM (16:04)
[2020-12-05] MEDS: HALOPERIDOL LACTATE 5 MG/ML VIAL IM (16:04)
--- NOTE | 2020-12-05 16:08 | PC.NURSE ---
Pt. placed in room fifteen and placed in hard restraints. VORB ERP Gerdelman IM 2 mg ativan and 5 mg haldol given to the pt. IM in R Ventral Gluteal
[2020-12-05 16:14] LABS: EDCOVIDSCREEN Negative (Negative)
--- NOTE | 2020-12-05 17:15 | PM.TDS ---
Transfer Discharge Sum: Prov Provider Date of admission: 12/04/20 12:47 Primary care physician: Neris Roht, Admitting clinician: Catracho Rivas MD Consults: 12/04/20 12:49 Consult to Physician Routine Comment: Consulting Provider: Taylor Jean-Baptiste Reason for consultation: Polysubstance overdose Has provider been notified: Yes DS: Discharge Diagnosis Discharge Diagnosis (1) Intentional overdose of drug in tablet form: Code(s): T50.902A - Poisoning by unspecified drugs, medicaments and biological substances, intentional self-harm, initial encounter Status: Acute Assessment and Plan: Venlafaxine, possibly alprazolam DENIES CURRENT SUICIDAL IDEATION OR INTENT, THOUGH ADMITS TO INTENT LAST NIGHT MEDICALLY STABLE FOR CRISIS EVALUATION AND WILLING TO PARTICIPATE IN BRIEF INPATIENT PSYCHIATRIC STAY FOR MEDICATION ADJUSTMENT (2) Alcohol use, unspecified with unspecified alcohol-induced disorder: Code(s): F10.99 - Alcohol use, unspecified with unspecified alcohol-induced disorder Status: Acute Assessment and Plan: BAL 11 upon admission (3) Cannabis use, unspecified with unspecified cannabis-induced disorder: Code(s): F12.99 - Cannabis use, unspecified with unspecified cannabis-induced disorder Status: Acute (4) Mood disorder: Code(s): F39 - Unspecified mood [affective] disorder Status: Acute Assessment and Plan: LIKELY BIPOLAR DISORDER, CURRENTLY HYPOMANIC Transfer Discharge Sum: Med Medications Active and Home Medications: Home Medications alprazolam 2 mg PO TID PRN 11/16/19 [History Confirmed 07/29/20] venlafaxine mg PO 12/05/20 [History] Active Medications Sodium Chloride (Normal Saline Iv) 1,000 mls @ 100 mls/hr IV CONT .Q10H ARACELI Last Infusion: 12/04/20 22:46 Dose: 0 mls/hr Documented by: Transfer Discharge Sum: Hosp Hospital Course Hospital course: Lesly Walls is a 40 year old female Time Spent with Patient Time attestation: Total time spent providing and/or coordinating transfer services: Exam Narrative: HEENT: PERRL, sclerae nonicteric, pharyngeal mucosa pink and intact NECK: No JVD, adenopathy, or thyromegaly CHEST: Clear to auscultation. Normal effort. HEART: NL S1/S2, regular, no murmur ABDOMEN: BS+, soft, nontender, no mass, no bruits EXTREMITIES: No cyanosis, edema, or clubbing NEUROLOGIC: CN intact and symmetric to inspection. MUSCULOSKELETAL: Tone and strength symmetric. PSYCH: Alert. Oriented to person, place, and time. Speech pressured, but coherent. Mood labile, intermittently tearful. DS: Data Data Completed and Pending Labs on day of discharge: Labs from last 24 hours 12/05/20 15:52 SARS-CoV-2 IgG/IgM Ag?Rapid Negative
--- NOTE | 2020-12-05 17:45 | PC.NURSE ---
Patient was receptive to education about behavior to remove restraints. She was informed that she can not be aggressive or attempt to engage in aggressive or violent behavior towards staff. Patient was also told that she was not able to leave the Emergency Department as she is awaiting placement and transfer to a psychiatric facility. She does tell me she understands. She specifically tells me I swear on my child that I will not cause problems or fight. When asked if she understands that she can not leave the ED, she tells me yes, yes, I get it . Patient also requests meal tray at this time. Emilyter remains at bedside with patient.
--- NOTE | 2020-12-05 17:49 | PC.NURSE ---
Restraints removed at 1740 and order canceled at that time.
--- NOTE | 2020-12-05 18:03 | PC.NURSE ---
Patient's Son called to request information about his mother. I asked the patient if she would allow me to speak with him and she tells me No, I'll talk to her when I'm all done . Patient's son was informed that I was not able to provided any information regarding his mother at this time.
--- NOTE | 2020-12-05 18:42 | PC.NURSE ---
assumed care of pt at this time. Rerport from Juvencio MARTINEZ
--- NOTE | 2020-12-05 18:45 | PC.NURSE ---
PT refused to stay in room. PT was walking aroun ED nurses states area and continued to refused to go back to her room. PT states several times I just want to go home, I want to leave . PT continued to refuse to go to her room, pt was then picked up by staff members and placed in her bed and hard restraints was put on pt. pt was yelling and cursing the entire time, pt continued to fight staff members.
--- NOTE | 2020-12-05 18:53 | PC.NURSE ---
400 MG of ketamine IM per order - see previous note for pt condition and reason for giving ketamine at this time. will mx pt . charge aware of situation.
--- NOTE | 2020-12-05 18:53 | PC.NURSE ---
Pt on continuous monitoring at this time.
--- NOTE | 2020-12-05 22:32 | PC.NURSE ---
Took pt to bathroom. PT conts to move all around and is being belligerent. PT conts to come out of her door area. PT conts to state i know my rights, my body, my rights pt conts to get up and look for her shoes. Reported this to and Charge nurse about situation. Leticia ordered and given .When I went in to give the haldol pt was cooperative and states she will listen . [place] sandwich given after . pt is calm and cooperative at this time.
[2020-12-06] VITALS (13 sets, daily range): BP systolic 128–168; BP diastolic 88–104; PULSE 73–117; RESP 12–23; TEMP 36.8–37; O2SAT 94–100; BMI 25.9
--- NOTE | 2020-12-06 00:28 | PC.NURSE ---
This patient, Lesly Walls, was admitted to Intensive Care Unit-5. Patient/family oriented to hospital policies and general routines including ID bracelet, bed and alarms, visiting hours, pain management, procedures, bathroom and other care routines, personal items, smoking policy, room service/diet, and visiting hours. Information on how to activate the Rapid Response Team has been discussed. Patient/Family are encouraged to report perceived risks to care and to ask questions if they do not understand what they are told or what they should do.
[2020-12-06] MEDS: HALOPERIDOL LACTATE 5 MG/ML VIAL IV PUSH (01:54)
[2020-12-06] MEDS: LORazepam INJ (*CRX) 2 MG/ML VIAL 1 MG IV PUSH (01:54)
[2020-12-06] MEDS: diphenhydrAMINE HCl INJ 50 MG/ML VIAL 25 MG IV PUSH (01:54)
[2020-12-06] MEDS: dexmedeTOMIDine 400 MCG/100 ML 400 MCG/100 ML BAG 5.15 MCG IV CONT (02:01)
[2020-12-06] MEDS: SODIUM CHLORIDE 0.9% IV 1,000 ML 999 ML IV CONT (08:19)
--- NOTE | 2020-12-06 08:40 | PM.IMPN ---
Progress Note: A&P Assessment and Plan (1) Intentional overdose of drug in tablet form: Code(s): T50.902A - Poisoning by unspecified drugs, medicaments and biological substances, intentional self-harm, initial encounter Status: Acute Assessment and Plan: Venlafaxine, possibly alprazolam DENIES CURRENT SUICIDAL IDEATION OR INTENT, THOUGH ADMITS TO INTENT ON NIGHT PRIOR TO ADMISSION MEDICALLY STABLE FOR TRANSFER TO PSYCH FACILITY (INVOLUNTARY) CURRENTLY ON PRECEDEX DRIP DUE TO SEVERE AGITATION (2) Alcohol use, unspecified with unspecified alcohol-induced disorder: Code(s): F10.99 - Alcohol use, unspecified with unspecified alcohol-induced disorder Status: Acute Assessment and Plan: BAL 11 upon admission (3) Cannabis use, unspecified with unspecified cannabis-induced disorder: Code(s): F12.99 - Cannabis use, unspecified with unspecified cannabis-induced disorder Status: Acute (4) Mood disorder: Code(s): F39 - Unspecified mood [affective] disorder Status: Acute Assessment and Plan: LIKELY BIPOLAR DISORDER, CURRENTLY HYPOMANIC Subjective Date/time seen: 12/06/20 08:40 Interval history: Last night took unknown quantity of her venlafaxine. Had rx for alprazolam and was positive for that. Also had alcohol. Was distraught and wanted to . Denies desire to now, but is willing to do inpatient stay to adjust meds. Stressors with legal and custody battles and recent of aunt. Sleeps only 2 hours per night. Impulsive. High energy. Irritable. Crashes intermittently with severe depression. Fam Hx + for depression, uncertain about bipolar. Review of Systems Review of Systems: All systems reviewed & are unremarkable except as noted in HPI and below Exam Narrative: HEENT: PERRL, sclerae nonicteric, pharyngeal mucosa pink and intact NECK: No JVD, adenopathy, or thyromegaly CHEST: Clear to auscultation. Normal effort. HEART: NL S1/S2, regular, no murmur ABDOMEN: BS+, soft, nontender, no mass, no bruits EXTREMITIES: No cyanosis, edema, or clubbing NEUROLOGIC: CN intact and symmetric to inspection. MUSCULOSKELETAL: Tone and strength symmetric. PSYCH: Alert. Oriented to person, place, and time. Objective Data Vital Signs Vital Signs: Vital Signs - 24 hr 12/05/20 12:30 12/05/20 19:00 12/05/20 19:58 Temperature 98.1 F Pulse Rate 93 120 H 116 H Respiratory Rate 18 16 14 Blood Pressure 138/88 116/92 H 112/91 H Pulse Oximetry 99 100 100 12/05/20 20:30 12/05/20 21:00 12/05/20 22:00 Temperature Pulse Rate 78 90 74 Respiratory Rate 18 18 18 Blood Pressure 122/77 140/80 124/74 Pulse Oximetry 100 100 100 12/05/20 23:08 12/06/20 00:00 12/06/20 01:47 Temperature 98.2 F Pulse Rate 77 117 H 86 Respiratory Rate 18 20 20 Blood Pressure 126/78 131/99 H Pulse Oximetry 100 100 12/06/20 02:00 12/06/20 02:01 12/06/20 02:15 Temperature Pulse Rate 92 91 88 Respiratory Rate 23 H 20 17 Blood Pressure 168/104 H 148/94 H Pulse Oximetry 94 94 12/06/20 02:30 12/06/20 04:00 12/06/20 06:00 Temperature 98.6 F Pulse Rate 84 74 74 Respiratory Rate 17 13 12 Blood Pressure 133/93 H 153/101 H 159/102 H Pulse Oximetry 94 97 98 Intake/Output Intake/Output: Intake & Output 12/03/20 12/04/20 12/05/20 12/06/20 23:59 23:59 23:59 23:59 Intake Total 2000 148 Output Total 200 500 Balance 1800 -352 Meds/Results Medications: Active Medications Generic Name Dose Route Start Last Admin Trade Name Satnam PRN Reason Stop Dose Admin Dexmedetomidine HCl 400 mcg in 100 mls @ 3.435 mls/hr 12/06/20 01:30 12/06/20 02:01 Precedex 400 Mcg/100 Ml IV CONT 0.3 mcg/kg/hr .Q29H7M ARACELI 5.15 mls/hr Administration Protocol 0.2 MCG/KG/HR Sodium Chloride 1,000 mls @ 999 mls/hr 12/06/20 08:01 12/06/20 08:19 Normal Saline Iv IV CONT 12/06/20 09:01 999 mls/hr .Q1H1M ONE Administration Radiology Results: IT
--- NOTE | 2020-12-06 14:51 | WPDCNINT ---
Assessment and Plan Assessment and plan (1) Intentional overdose of drug in tablet form: Code(s): T50.902A - Poisoning by unspecified drugs, medicaments and biological substances, intentional self-harm, initial encounter Status: Acute Assessment and Plan: Patient presented with possible alprazolam and diclofenac overdose -patient has been adequately fluid-resuscitated -patient is medically stable for involuntary transferred to a psych facility -Precedex infusion has been discontinued (2) Suicidal ideation: Code(s): R45.851 - Suicidal ideations Status: Acute Assessment and Plan: Patient did text a friend that she wants to end her life -currently denies any suicidal ideation at time -patient has been accepted to psych facility, she is medically stable to be transferred (3) Mood disorder: Code(s): F39 - Unspecified mood [affective] disorder Status: Acute Assessment and Plan: Mood disorder likely bipolar (4) Alcohol use, unspecified with unspecified alcohol-induced disorder: Code(s): F10.99 - Alcohol use, unspecified with unspecified alcohol-induced disorder Status: Acute Assessment and Plan: Continue CIWA protocol (5) Cannabis use, unspecified with unspecified cannabis-induced disorder: Code(s): F12.99 - Cannabis use, unspecified with unspecified cannabis-induced disorder Status: Acute Additional Plan Discussed with patient at length and updated with her condition and plan of care. Seems to understand that she might be going to a psych facility prior to going Code status: Full code Critical care time spent: 39 minute This dictation may have been done utilizing a voice recognition system. Attempts have been made to correct errors. However, there may be uncorrected grammatical, spelling, and recognition errors present. Due to a high probability of clinically significant, life threatening deterioration, the patient required my highest level of preparedness to intervene emergently and I personally spent this critical care time directly and personally managing the patient. This critical care time included obtaining a history; examining the patient; pulse oximetry; ordering and review of studies; arranging urgent treatment with development of a management plan; evaluation of patient's response to treatment; frequent reassessment; and discussions with other providers. It was exclusive of separately billable procedures and treating other patients and teaching time. Please see Assessment and Plan section and the rest of the note for further information on patient assessment and treatment [employer] Consult Note Consult date: 12/06/20 Time Seen: 07:15 Reason for consult: Suspected overdose, suicide attempt HPI: Lesly Walls is a 40 year old female with past medical history of alcohol abuse, suicide attempt presented the ED via EMS on 12/04/2020 after being found unresponsive with suspected overdose. According the records patient had texted her friend that she was trying to end her life. Flexeril and diclofenac bottles were found in the vicinity where patient was found unresponsive at home. Patient was transferred to the ICU last evening after she was agitated and requiring Ativan, Haldol and was started on Precedex infusion Patient seen examined this morning, is awake, alert, oriented. Is not agitated or combative. I have asked the bedside RN turn off the Precedex infusion. Discussed with patient at length regarding any issues she did say that she texted a friend that she has greater and alive, patient has had a lot of stressors lately, his last job, case for a custody for her son has been filed. Patient is hemodynamically stable, urine output has been adequate, afebrile. Denies any shortness of breath, chest pain, abdominal pain, nausea vomiting at this time. Review of Systems Review of Systems: All systems reviewed & are unremarkable except as
[2020-12-06 16:12] LABS: Beta HCG Quantitative < 2.39 mIU/ML
[2020-12-06] MEDS: lamoTRIgine 25 MG TABLET PO (21:13)
[2020-12-06] MEDS: OLANZapine 5 MG TABLET 10 MG PO (21:13)
--- NOTE | 2020-12-06 21:47 | PC.NURSE ---
Updated [facility] regarding patient status. Plan for transfer in AM to hospital.
[2020-12-07 08:00] VITALS: BP 154/98; PULSE 77; RESP 16; TEMP 36.8; O2SAT 99
--- NOTE | 2020-12-07 08:56 | PM.IMPN ---
Progress Note: A&P Assessment and Plan (1) Intentional overdose of drug in tablet form: Code(s): T50.902A - Poisoning by unspecified drugs, medicaments and biological substances, intentional self-harm, initial encounter Status: Acute Assessment and Plan: Medically stable. (2) Suicidal ideation: Code(s): R45.851 - Suicidal ideations Status: Acute Assessment and Plan: Seems to have resolved Crisis to re-evaluate for outpatient f/u Increase Zyprexa to 15mg, continue Lamictal 25mg, add Zoloft 25mg. (3) Mood disorder: Code(s): F39 - Unspecified mood [affective] disorder Status: Acute Assessment and Plan: Mood disorder likely bipolar (4) Alcohol use, unspecified with unspecified alcohol-induced disorder: Code(s): F10.99 - Alcohol use, unspecified with unspecified alcohol-induced disorder Status: Acute Assessment and Plan: Continue CIWA protocol No evidence for w/d (5) Cannabis use, unspecified with unspecified cannabis-induced disorder: Code(s): F12.99 - Cannabis use, unspecified with unspecified cannabis-induced disorder Status: Acute Assessment and Plan: No adverse effects noted at this time Subjective Date/time seen: 12/07/20 08:56 Interval history: On day of admission was distraught and wanted to . Slept well after Zyprexa 10mg and Lamictal 25mg last night. Denies SI/HI. Ate well. Stressors with legal and custody battles and recent of aunt, boyfriend broke up with her and her son was incarcerated. Sleeps only 2 hours per night. Impulsive. High energy. Irritable. Crashes intermittently with severe depression. Fam Hx + for depression, uncertain about bipolar. Review of Systems Review of Systems: All systems reviewed & are unremarkable except as noted in HPI and below Exam Narrative: HEENT: PERRL, sclerae nonicteric, pharyngeal mucosa pink and intact NECK: No JVD, adenopathy, or thyromegaly CHEST: Clear to auscultation. Normal effort. HEART: NL S1/S2, regular, no murmur ABDOMEN: BS+, soft, nontender, no mass, no bruits EXTREMITIES: No cyanosis, edema, or clubbing NEUROLOGIC: CN intact and symmetric to inspection. MUSCULOSKELETAL: Tone and strength symmetric. PSYCH: Alert. Oriented to person, place, and time. Objective Data Vital Signs Vital Signs: Vital Signs - 24 hr 12/06/20 10:00 12/06/20 18:15 12/06/20 20:00 Temperature Pulse Rate 74 85 Respiratory Rate 18 17 Blood Pressure 138/95 H Pulse Oximetry 99 12/06/20 21:51 12/07/20 08:00 Temperature 98.5 F 98.3 F Pulse Rate 85 77 Respiratory Rate 17 16 Blood Pressure 128/88 154/98 H Pulse Oximetry 99 99 Intake/Output Intake/Output: Intake & Output 12/04/20 12/05/20 12/06/20 12/07/20 23:59 23:59 23:59 23:59 Intake Total 2000 608 300 Output Total 200 1000 500 Balance 1800 -392 -200 Meds/Results Medications: Active Medications Generic Name Dose Route Start Last Admin Trade Name Freq PRN Reason Stop Dose Admin Lamotrigine 25 mg 12/06/20 21:00 12/06/20 21:13 Lamotrigine 25 Mg Tablet PO 25 mg HS ARACELI Administration Olanzapine 10 mg 12/06/20 21:00 12/06/20 21:13 Olanzapine 5 Mg Tablet PO 10 mg HS ARACELI Administration Radiology Results: ITS Impressions Head CT 12/04/20 11:58 IMPRESSION: 1. Normal brain. Labs Labs: Laboratory Results - last 24 hr 12/04/20 10:59 Beta HCG, Quant < 2.39 Quality VTE Prophylaxis VTE prophylaxis: pharmacologic ordered
--- NOTE | 2020-12-07 09:07 | PM.TDS ---
Transfer Discharge Sum: Prov Provider Date of admission: 12/04/20 12:47 Primary care physician: Neris Roth, Admitting clinician: Catracho Rivas MD Transfer Discharge Sum: Med Medications Active and Home Medications: Home Medications alprazolam 2 mg PO TID PRN 11/16/19 [History Confirmed 12/06/20] venlafaxine 75 mg PO DAILY 12/05/20 [History Confirmed 12/06/20] Active Medications Lamotrigine (Lamotrigine 25 Mg Tablet) 25 mg PO HS ARACELI Last Admin: 12/06/20 21:13 Dose: 25 mg Documented by: Olanzapine (Olanzapine 5 Mg Tablet) 15 mg PO HS ARACELI Sertraline HCl (Sertraline Hcl 25 Mg Tablet) 25 mg PO QAM [facility] Transfer Discharge Sum: Hosp Hospital Course Hospital course: Lesly Walls is a 40 year old female Time Spent with Patient Time attestation: Total time spent providing and/or coordinating transfer services: DS: Data Data Completed and Pending Labs on day of discharge: Labs from last 24 hours 12/04/20 10:59 Beta HCG, Quant < 2.39
[2020-12-07] MEDS: SERTRALINE HCL 25 MG TABLET PO (10:02)
--- NOTE | 2020-12-07 11:41 | PM.DS ---
DS: Admitting Diagnosis Admitting Diagnosis drug overdose DS: Discharge Diagnosis Discharge Diagnosis (1) Intentional overdose of drug in tablet form: Code(s): T50.902A - Poisoning by unspecified drugs, medicaments and biological substances, intentional self-harm, initial encounter Status: Acute Assessment and Plan: Medically stable. (2) Suicidal ideation: Code(s): R45.851 - Suicidal ideations Status: Acute Assessment and Plan: Seems to have resolved Crisis re-evaluated and patient has agreed to outpatient psych f/u Increase Zyprexa to 15mg, continue Lamictal 25mg, add Zoloft 25mg She will see her PCP within one week and obtain referral for counseling and psychiatry (3) Mood disorder: Code(s): F39 - Unspecified mood [affective] disorder Status: Acute Assessment and Plan: Mood disorder likely bipolar (4) Alcohol use, unspecified with unspecified alcohol-induced disorder: Code(s): F10.99 - Alcohol use, unspecified with unspecified alcohol-induced disorder Status: Acute Assessment and Plan: No evidence for w/d during her stay (5) Cannabis use, unspecified with unspecified cannabis-induced disorder: Code(s): F12.99 - Cannabis use, unspecified with unspecified cannabis-induced disorder Status: Acute Assessment and Plan: No adverse effects noted at this time DS: Summary Hospital Course Reason for hospitalization: drug overdose with suicidal intent Hospital Course: Patient was admitted after ingesting several venlafaxine tablets. She also had alprazolam and alcohol. Blood alcohol level was 11. She was violent and agitated emergency department required restraints. Hold all on Ativan help control symptoms. She was evaluated by crisis and deemed to be suicidal. She was maintained on suicide watch. After initiating Zyprexa, Lamictal, and Zoloft her mood improved and she was not experiencing suicidal ideation. She was re-evaluated by crisis and agreed to outpatient follow-up. During her stay her vital signs telemetry and laboratories were all unremarkable. Status at Discharge Functional status at discharge: independent ambulation Overall status at discharge: patient is back to baseline Time Spent with Patient Time attestation: Total time spent providing and/or coordinating discharge services: Time spent: Greater than 30 minutes DS: Data Data Completed and Pending Labs on day of discharge: Labs from last 24 hours 12/04/20 10:59 Beta HCG, Quant < 2.39 Discharge Plan Discharge Discharging Clinician: Ismael Walls Patient Disposition: Home, Self-Care Activity: as tolerated Diet: as tolerated Discharge Instructions: Call crisis line if thoughts about recur or if you feel overwhelmed. Patient Instructions: How to Stop Smoking (GEN) Stand Alone Forms: General Discharge Information Follow-up/Referrals: Gio,Neris Salinas MD [Primary Care Provider] - 1 Week Discharge Medications: New olanzapine 5 mg Tablet 15 mg PO HS Qty: 14 RF: 0 lamotrigine [Lamictal] 25 mg Tablet 25 mg PO HS Qty: 14 RF: 0 sertraline [Zoloft] 50 mg Tablet 25 mg PO QAM Qty: 14 RF: 0 Discontinued alprazolam 2 mg tablet 2 mg PO TID PRN (Reason: Anxiety) RF: 0 venlafaxine 75 mg capsule,extended release 24hr 75 mg PO DAILY RF: 0 Date of admission: 12/04/20 12:47 Primary Care Provider: Ira,Neris Salinas Admitting Provider: Carlos Rivas Attending physician on admission: Carlos Rivas Condition: Stable Quality VTE Prophylaxis VTE prophylaxis: pharmacologic ordered
== END 2020-12-07 12:55 | disposition home or self-care (01) ==
LOC: ANHED 10:41 → ANHICU 17:56
PROVIDERS: Admitting Provider Internal Medicine; Emergency Provider Emergency Medicine; PCP Family Medicine; Visit Provider Internal Medicine
DX: T50.902A Poisoning by unspecified drugs, medicaments and biological substances, intentional self-harm, initial encounter (principal); R41.89 Other symptoms and signs involving cognitive functions and awareness; F10.99 Alcohol use, unspecified with unspecified alcohol-induced disorder; F12.99 Cannabis use, unspecified with unspecified cannabis-induced disorder; F39 Unspecified mood [affective] disorder; R45.851 Suicidal ideations; F17.290 Nicotine dependence, other tobacco product, uncomplicated; Z79.899 Other long term (current) drug therapy
CPT/HCPCS: 36415; 51701; 70450; 80053; 80307; 81001; 81025; 83735; 84443; 84702; 85025; 85610; 85730; 87426; 93005; 96361; 96365; 96366; 96372; 96374; 96375; 99285; A9270; C9113; C9803; G0378; G0379; J1200; J1630; J2060; J2310; J7030

== ENCOUNTER 2022-05-14 11:32 | Emergency (ER) | payer OTHER, SELFPAY ==
[2022-05-14 11:48] VITALS: BP 148/83; PULSE 114; RESP 16; TEMP 36.7; O2SAT 99
--- NOTE | 2022-05-14 12:11 | ED.GENADULT ---
HPI - General Adult General Chief complaint: Unspecified Stated complaint: vomiting,diarrhea,vaginal bleeding Time Seen by Provider: 05/14/22 12:12 Source: patient, RN notes reviewed and old records reviewed Mode of arrival: ambulatory Limitations: no limitations History of Present Illness HPI narrative: 42-year-old female presents to the [facility] with complaints of lower abdominal pain, vaginal bleeding and passing ?large clots . Unsure of last menstrual period. Unsure of how many pads she has been through. Patient states she had similar symptoms a week or 2 ago, unsure of the day States the symptoms returned yesterday and she was at work when she started having increased pain, suprapubic and passing clots again. Denies chest pain or shortness of breath. States she took an at-home test which she reports is negative Has had nausea and vomiting since yesterday, unsure of how many times Related Data Home Medications Medication Instructions Recorded Confirmed quetiapine 200 mg tablet mg 05/14/22 Allergies Allergy/AdvReac Type Severity Reaction Status Date / Time No Known Allergies Allergy Verified 05/14/22 12:16 Review of Systems Review of Systems: All systems reviewed & are unremarkable except as noted in HPI and below Constitutional: Constitutional: Reports no additional constitutional complaints Eyes: Eyes: Reports no additional eye complaints ENT: Reports system reviewed and no additional complaints, except as documented Cardiovascular: Cardiovascular: Reports no additional cardiovascular complaints, Denies chest pain and Denies dyspnea Respiratory: Respiratory: Reports no additional respiratory complaints, Denies chest congestion, Denies cough and Denies dyspnea Gastrointestinal: Gastrointestinal: Reports no additional gastrointestinal complaints, Denies abdominal pain, Denies nausea and Denies vomiting Genitourinary: Genitourinary: Reports as per HPI and Reports abnormal vaginal bleeding Musculoskeletal: Musculoskeletal: Reports no additional musculoskeletal complaints Integumentary/Breasts: Skin/Breast: Reports system reviewed and no additional complaints, except as docu Neurologic: Reports system reviewed and no additional complaints, except as documented Psychiatric: Psychiatric: Reports no additional psychiatric complaints Allergic/Immunologic: Allergic/Immunologic: Reports no additional allergic/immunologic complaints [facility] Past Medical History Medical History History of alcohol abuse History of suicide attempt Surgical History Surgical History History of appendectomy Family History Family History Other Diabetes mellitus Family history of arthritis Social History Social History Social History: Emergency contact: Jose Walls, mother. Code status: Full code. Years smoked: 4 Smoking status: Current every day smoker Tobacco type: e-cigarettes/vaping Second hand tobacco smoke exposure: Yes Alcohol intake: current Alcohol use details: Previously documented as having a history of alcohol abuse in her chart. Substance use: current Substance use type: marijuana Other substance usage details: Mother states Lesly is an alcoholic Living arrangements: with family Additional living arrangements comments: Patient's address is in [place]. Occupation/Education: unemployed Additional occupation/education comments: Unemployed. Sexual Orientation (if Verbalized by the Patient): Straight or Heterosexual Spiritual care concerns: No Comments At the time of my signature, I reviewed and agree with the nursing past medical, surgical, social, and family history. There is no relevant family history pertinent to the patient complaint.
--- NOTE | 2022-05-14 12:34 | PC.NURSE ---
upon initial assessment denied any pmh and medications.
== END 2022-05-14 12:28 | disposition short-term general hospital (02) ==
LOC: EXPCOLL 11:42
PROVIDERS: Emergency Provider Nurse Practitioner; PCP Family Medicine
DX: N93.9 Abnormal uterine and vaginal bleeding, unspecified (principal); R10.31 Right lower quadrant pain; R10.32 Left lower quadrant pain; F17.290 Nicotine dependence, other tobacco product, uncomplicated
CPT/HCPCS: 99212; G0463

== ENCOUNTER 2022-05-14 12:39 | Emergency (ER) | payer OTHER, SELFPAY ==
[2022-05-14 12:44] VITALS: BP 142/85; PULSE 100; RESP 16; TEMP 36.3; O2SAT 99
--- NOTE | 2022-05-14 13:36 | ED.ABDPAIN ---
HPI - Abdominal Pain General Chief Complaint: Abdominal Pain Stated Complaint: abd pain, vaginal bleeding Time Seen by Provider: 05/14/22 12:50 Source: patient and old records reviewed Mode of arrival: ambulatory Limitations: no limitations History of Present Illness HPI narrative: Patient is a 42-year-old female who presents to the ED with report of abdominal pain and vaginal bleeding. Patient reports she missed 2 menstrual cycles at the end of last year. She thought she may be perimenopausal or . She had a menstrual cycle at the beginning of April, which was normal. She did note she passed some clots at that time. Patient began bleeding again today and noted clots again. She also reported having lower abdominal cramping today, which was interfering with her work. She did not try anything for the pain. She went to urgent care prior to arrival and was referred here for further evaluation. Patient also reports having nausea and vomiting 2 days ago, but denies any nausea currently. Denies diarrhea, constipation, fever, cough or cold symptoms. Patient does mention she was exposed to her mother with COVID and would like to be tested. Related Data Home Medications Medication Instructions Recorded Confirmed quetiapine 200 mg tablet mg 05/14/22 Allergies Allergy/AdvReac Type Severity Reaction Status Date / Time No Known Allergies Allergy Verified 05/14/22 12:41 Review of Systems Review of Systems: CONSTITUTIONAL: Denies fever, chills, or sweats. CARDIOVASCULAR: Denies chest pain. RESPIRATORY: Denies dyspnea. GASTROINTESTINAL: See HPI. GENITOURINARY: See HPI. All systems reviewed & are unremarkable except as noted in HPI and below PMFSH Past Medical History Medical History History of alcohol abuse History of suicide attempt Surgical History Surgical History History of appendectomy Family History Family History Other Diabetes mellitus Family history of arthritis Social History Social History Social History: Emergency contact: Jose Walls, mother. Code status: Full code. Years smoked: 4 Smoking status: Current every day smoker Tobacco type: e-cigarettes/vaping Second hand tobacco smoke exposure: Yes Alcohol intake: current Alcohol use details: Previously documented as having a history of alcohol abuse in her chart. Substance use: current Substance use type: marijuana Other substance usage details: Mother states Lesly is an alcoholic Living arrangements: with family Additional living arrangements comments: Patient's address is in [place]. Occupation/Education: unemployed Additional occupation/education comments: Unemployed. Sexual Orientation (if Verbalized by the Patient): Straight or Heterosexual Spiritual care concerns: No Exam Narrative: GENERAL: Well appearing, well-nourished, non-toxic, in no acute distress. HEAD: Normocephalic, atraumatic. NECK: Supple. No adenopathy, no masses. RESPIRATORY: Airway patent, respirations nonlabored. Clear to auscultation bilaterally, no rales, rhonchi, wheezing. CARDIOVASCULAR: Regular rate and rhythm without murmurs, rubs, or gallops. Radial pulses 2+ and equal bilaterally. ABDOMINAL: Soft, mild tenderness throughout lower abdomen, no rebound or guarding, nondistended, no hepatosplenomegaly. Normoactive BS. MUSCULOSKELETAL: Moves all extremities. Strength/ROM intact without gross deformities. SKIN: Warm, dry, normal color. No rashes. NEURO: A&O X3. Speech clear. Cranial nerves II-XII grossly intact. Steady gait. No ataxic movements. PSYCHIATRIC: Appropriate mood and affect. Normal interaction. Course Vital Signs Vital signs: Vital Signs Temperature 97.3 F L 05/14/22 1
[2022-05-14 13:49] LABS: Basophils Percent Auto 0.3 % (0.2-1.2); Eosinophils Percent Auto 0.3 % (0-4.4); Hematocrit 35.9 % (37.0-47.0); Immature Granulocyte Absolute 0.01 K/mm3 (0.00-0.031); Immature Granulocyte Percent A 0.1 % (0-0.5); Lymphocytes Absolute Auto 1.56 K/mm3 (0.9-3.2); Lymphocytes Percent Auto 22.5 % (18.3-44.2); Mean Corpuscular HGB Conc 33.4 g/dl (32-36); Mean Corpuscular Hemoglobin 30.8 pg (26-34); Mean Corpuscular Volume 92.3 fl (80-100); Mean Platelet Volume 9.9 fl (7.4-10.4); Monocytes Absolute Auto 0.5 K/mm3 (0.1-0.6); Monocytes Percent Auto 7.1 % (2.6-8.5); Neutrophils Absolute Auto 4.8 K/mm3 (1.3-6.7); Neutrophils Percent Auto 69.7 % (45.5-73.1); Platelet Count Result 275 k/mm3 (150-375); Red Blood Count 3.89 M/mm3 (4.2-5.4); Red Cell Distribution Width 13.2 % (11.5-14.5); White Blood Count 6.9 K/mm3 (4.5-10.0)
--- NOTE | 2022-05-14 13:53 | PC.NURSE ---
pt approached nurses station and stated she had an emergency and needed to leave right away. pt walked out of ED without difficulty.
[2022-05-14 14:26] LABS: Influenza A QL RT-PCR Negative (Negative); Influenza B QL RT-PCR Negative (Negative); SARS-CoV-2 RNA PCR Negative
[2022-05-14 15:39] LABS: Alanine Aminotransferase 20 U/L (6-35); Albumin Level 4.4 g/dL (3.5-5.1); Alkaline Phosphatase 73 U/L (38-126); Anion Gap 5 mmol/L (8-16); Aspartate Amino Transferase 31 U/L (14-36); Bilirubin,Total 0.4 mg/dL (0.2-1.3); Blood Urea Nitrogen 14 mg/dL (7-17); Calcium 8.8 mg/dL (8.4-10.2); Carbon Dioxide 22 mmol/L (22-30); Chloride 101 mmol/L (98-107); Estimated CRCL calculation 75 ml/min; Estimated Glomerular Filt Rate > 60; Glucose 99 mg/dL (65-110); Lipase 458 U/L (23-300); Potassium 4.1 mmol/L (3.4-5.0); Sodium 128 mmol/L (137-145)
[2022-05-14 15:56] LABS: Beta HCG Quantitative < 2.39 mIU/ML
== END 2022-05-14 14:00 | disposition left against medical advice (07) ==
PROVIDERS: Emergency Provider Physician Assistant; PCP Family Medicine
DX: N93.9 Abnormal uterine and vaginal bleeding, unspecified (principal); R10.30 Lower abdominal pain, unspecified; Z20.822 Contact with and (suspected) exposure to COVID-19; F17.290 Nicotine dependence, other tobacco product, uncomplicated
CPT/HCPCS: 36415; 80053; 83690; 84702; 85025; 87636; 99283

== ENCOUNTER 2022-12-30 10:14 | Emergency (ER) | payer OTHER, SELFPAY ==
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
[2022-12-30 10:24] VITALS: BP 151/105; PULSE 85; RESP 16; TEMP 36.3; O2SAT 100
== END 2022-12-30 11:10 | disposition home or self-care (01) ==
PROVIDERS: Emergency Provider Nurse Practitioner; PCP Family Medicine
DX: M54.50 Low back pain, unspecified (principal); F17.290 Nicotine dependence, other tobacco product, uncomplicated
CPT/HCPCS: 81003; 99213; G0463

== ENCOUNTER 2023-03-15 08:56 | Emergency (ER) | payer SELFPAY ==
[2023-03-15 09:13] VITALS: BP 158/92; PULSE 91; RESP 16; TEMP 36.4; O2SAT 100
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
== END 2023-03-15 10:01 | disposition home or self-care (01) ==
PROVIDERS: Emergency Provider Nurse Practitioner Family; PCP Family Medicine
DX: N89.8 Other specified noninflammatory disorders of vagina (principal); F17.290 Nicotine dependence, other tobacco product, uncomplicated
CPT/HCPCS: 81003; 99214; G0463